=== PATIENT | male | born 1995 | race Caucasian/White ===

== ENCOUNTER 2017-12-12 06:55 | Emergency (ER) | payer MEDICAID, SELFPAY ==
[2017-12-12 06:56] VITALS: BP 124/75; PULSE 89; RESP 18; TEMP 36.6; O2SAT 100; BMI 19.1
[2017-12-12 06:58] VITALS: O2SAT 100
--- NOTE | 2017-12-12 07:11 | ED.VISSUMM ---
- ER Visit Summary Date of Service: 12/12/17 Chief Complaint: [Cough] History of Present Illness: The patient is a 22 M [presents the emergency department with complaint of a cough ?10 days. Patient states that his roommate also with similar illness. Patient coughing up green ,yellow, and brown sputum. Patient also complains of a slight sore throat. Patient's had subjective fevers and chills at home. Patient denies any significant shortness of breath. He does not currently have a primary care physician. Patient is a smoker.] Physical Examination: [HEENT-PERRLA, EOMI. Cranial nerves II through XII grossly intact. TMs clear. Mucous membranes moist. No adenopathy. Cardiovascular-regular rate and rhythm without murmur or ectopy Lungs-good aeration bilaterally. Patient has coarse rhonchi and occasional expiratory wheezes noted bilaterally. No accessory muscle use or retractions. No respiratory distress Abdomen-normoactive bowel sounds, soft, nontender, no rebound or rigidity, no peritoneal signs. Extremities-intact ?4, normal range of motion, normal pulses, atraumatic] Test Results: [None indicated] Emergency Department Course and Treatment: [Patient was started on Zithromax and albuterol MDI.] Treatment Plan: [Patient will be treated with Zithromax, Tessalon Perles, and albuterol MDI. Patient will be referred to primary care physician installation technician for no doc for follow-up.] Disposition: [Discharged home in stable condition] Impression: [Asthmatic bronchitis] This note was generated with [employer] dictation software. It may contain incorrect words, spelling, and punctuation that were not noted in review of the chart prior to signing ED Disposition - Plan for ED Patient: Chief Complaint: Cough Referrals: Chu Ortiz MD [Primary Care Provider] -
--- NOTE | 2017-12-12 07:13 | ED.DEP ---
ED Disposition - Plan for ED Patient: Chief Complaint: Cough Instructions: ED Bronchitis Asthmatic Prescriptions: Azithromycin [Zithromax] 250 mg PO DAILY #4 tab Benzonatate [Tessalon Perle] 200 mg PO TID PRN PRN #20 cap PRN Reason: Cough Referrals: Chu Ortiz MD [Primary Care Provider] - Jese Steele MD [STAFF PHYSICIAN] - 5-7 Days Marilee Christian MD [STAFF PHYSICIAN] - As Needed
[2017-12-12] MEDS: Azithromycin 250 MG Tablet 500 MG PO (07:15)
--- NOTE | 2017-12-13 11:09 | CM.ED ---
ED CALLBACK: Follow-up call placed to patient with no answer. Voicemail left with return contact information.
== END 2017-12-12 07:19 | disposition home or self-care (01) ==
LOC: ED 07:17
PROVIDERS: Emergency Provider Emergency Medicine
DX: J45.909 Unspecified asthma, uncomplicated (principal); F17.200 Nicotine dependence, unspecified, uncomplicated
CPT/HCPCS: 99283